=== PATIENT | female | born 1930 | race Caucasian/White ===

== ENCOUNTER 2017-09-04 05:34 | Inpatient (IN) | payer MEDICAID ==
[2017-09-04 05:46] VITALS: BMI 32.3
[2017-09-04] MEDS ORDERED: Sodium Chloride 0.9% 1,000 ML IV ONE ×2 (05:50→09:06)
[2017-09-04 06:15] LABS: SQUAMOUS EPITHIAL < 1 /hpf (0-5); URINE BILIRUBIN NEGATIVE (NEGATIVE); URINE BLOOD NEGATIVE (NEGATIVE); URINE CLARITY Clear (Clear); URINE COLOR Amber (YELLOW); URINE GLUCOSE (UA) NORMAL (Normal); URINE LEUKOCYTE ESTERASE NEG Leu/uL (Negative); URINE PROTEIN NEGATIVE (NEGATIVE)
[2017-09-04 06:25] LABS: BASO % 0.1 % (0.0-2.0); HEMOGLOBIN 12.4 g/dL (11.0-16.0); LYMPH # 0.2 K/uL (1.0-4.3); LYMPH % 5.7 % (20.0-40.0); MEAN CELL VOLUME 101.5 fL (81.0-99.0); MEAN CORPUSCULAR HEMOGLOBIN 34.6 pg (27.0-31.0); MEAN CORPUSCULAR HGB CONC 34.1 g/dL (33.0-37.0); MEAN PLATELET VOLUME 8.2 fL (7.2-11.7); MONO # 0.1 K/uL (0.0-0.8); MONO % 1.8 % (0.0-10.0); NEUT # 3.2 K/uL (1.8-7.0); NEUT % 92.4 % (50.0-75.0); NRBC % 0.1 % (0.0-2.0); PLATELET COUNT 209 K/uL (130-400); RBC 3.57 Mil/uL (3.80-5.20); WHITE BLOOD COUNT 3.5 K/uL (4.8-10.8)
--- NOTE | 2017-09-04 06:28 | C.PDOC ---
History Of Present Illness <Oanh Gaines - Last Filed: 09/04/17 06:58> <Latoya Pina - Last Filed: 09/04/17 09:19> 87 y/o female with a history of Alzheimer's, HTN, non-insulin depend DM, and anemia presents to the ED for SOB. Patient was brought in by group home EMS for worsening SOB and hypotension. She is not voicing any particular complaints due to dementia. BP was 60 palpitations with severe respiratory distress. Of note, no other history is available and patient is full code. PMD: Linda Fuentes (Oanh Gaines) History Per: Patient History/Exam Limitations: no limitations Onset/Duration Of Symptoms: Mins Current Symptoms Are (Timing): Still Present <Oanh Gaines - Last Filed: 09/04/17 06:58> <Latoya Pina - Last Filed: 09/04/17 09:19> Time Seen by Provider: 09/04/17 05:42 Chief Complaint (Nursing): Respiratory Distress Past Medical History - Medical History PMH: Alzheimer's Disease, Anemia, Diabetes, HTN Surgical History: No Surg Hx Denies: Pacemaker Family History: States: Unknown Family Hx - Social History Hx Tobacco Use: No Hx Alcohol Use: No Hx Substance Use: No - Immunization History Hx Tetanus Toxoid Vaccination: No Hx Influenza Vaccination: No Hx Pneumococcal Vaccination: No <Oanh Gaines - Last Filed: 09/04/17 06:58> <Latoya Pina - Last Filed: 09/04/17 09:19> Vital Signs: Last Vital Signs Temp 98.9 F 09/04/17 05:58 Pulse 122 H 09/04/17 06:35 Resp 43 H 09/04/17 06:35 BP 74/34 L 09/04/17 06:35 Pulse Ox 94 L 09/04/17 07:00 - [facility] Procedures ANGIOPLASTY OF OTHER NON-CORONARY VESSEL(S) (03/05/14) CONTRAST AORTOGRAM (03/05/14) CONTRAST ARTERIOGRAM NEC (03/05/14) ESOPHAGOGASTRODUODENOSCOPY [EGD] W/CLOSED BIOPSY (04/07/13) INSEJ [id number] PERIPHERAL NON-CORONARY VES STENT(S) (03/05/14) INSERTION OF ONE VASCULAR STENT (03/05/14) PROCEDURE ON SINGLE VESSEL (03/05/14) Review Of Systems Except As Marked, All Systems Reviewed And Found Negative. Cardiovascular: Positive for: Other (hypotension) Respiratory: Positive for: Shortness of Breath <Oanh Gaines - Last Filed: 09/04/17 06:58> Physical Exam - Physical Exam Appears: Well, In Acute Distress (severe due to respiratory distress), Other ( non-verbal) Skin: Dry, Pale, Other (poor skin turgor, 3 cm decrepit ulcer in sacral area erythema stage 2) Head: Atraumatic, Normacephalic Eye(s): bilateral: Normal Inspection, PERRL, EOMI Nose: Normal Oral Mucosa: Dry Throat: Normal Neck: Normal Cardiovascular: No Rhythm Regular (resting tachycardia of 120), Other ( peripheral pulses are thready and weak) Respiratory: No Normal Breath Sounds (respiratory distress, 56 breaths per minute), Rales (bilateral half way up), Other (respiration is labored with abnormal breathing) Gastrointestinal/Abdominal: Normal Exam Back: Normal Inspection, No CVA Tenderness, No Vertebral Tenderness Extremity: Normal ROM, No Pedal Edema, No Other (no clubbing or stenosis are appreciated) Neurological/Psych: No Oriented x3 (x1), Other (patient can move all extremities , cranial nerves grossly intact) <Oanh Gaines - Last Filed: 09/04/17 06:58> ED Course And Treatment - Laboratory Results Result Diagrams: 09/04/17 06:18 09/04/17 06:18 ECG: Interpreted By Me, Viewed By Me ECG Rhythm: Atrial Fibrillation, V-Tachycardia, R BBB (followed by QRS) Interpretation Of ECG: no EKG's for comparison Rate From EC O2 Sat by Pulse Oximetry: 94 (Bipap) Pulse Ox Interpretation: Normal <Oanh Gaines - Last Filed: 09/04/17 06:58> - Laboratory Results Result Diagrams: 09/04/17 06:18 09/04/17 06:18 <Latoya Pina - Last Filed: 09/04/17 09:19> Medical Decision Making <Oanh Gaines - Last Filed: 09/04/17 06:58> <Latoya Pina - Last Filed: 09/04/17 09:19> Medical Decision Making: Impression: Sepsis versus pneumonia versus CHF given patient has hypotension. Initiate sepsis protocol. Initial Plan: * Consult Dr. Mckeon * ABG * EKG * Cortisol Test * CBC * Chest X-Ray * IV Fluids * Blood Culture * Urine Culture * Bipap Scribe Attestation: Documented by Delmar Samson acting as a scribe Eder Chiang MD. MD Scribe Attestation: All medical record entries made by the Scribe were at my direction and personally dictated by me. I have reviewed the chart and agree that the record accurately reflects my personal performance of the history, physical exam, medical decision making, and the department course for this patient. I have also personally directed, reviewed, and agree with the discharge instructions and disposition. (Oanh Gaines) Addendum <Oanh Gaines - Last Filed: 09/04/17 06:58> <Latoya Pina - Last Filed: 09/04/17 09:19> Addendum: 09/04/17 08:24 Spoke with basket hand braider Dr. Gonzalez, aware of ICU patient - will come down and evaluate. 09/04/17 09:08 Patient signed out to me by Dr. Gaines, pending ICU admission/eval and central line. Patient is s/p endotracheal intubation by him. Multiple attempts made at central line insertion by me, right subclaviana nd right femoral - unsuccessul. Dr. Gonzalez came to ED and will move patient to ICU and attempt central line insertion there. As per family, patient has had abdominal pain fopr 2-3 weeks, has been getting PO [place] at [place]. CT scan abd/pelvius ordered to evaluate intraabomial infection/pathology. 09/04/17 09:19 Dr. Mckeon called and made aware of patient's current condition. (Latoya Pina )
[2017-09-04 06:38] LABS: ALB/GLOB RATIO 0.7 (1.0-2.1); ALBUMIN 2.1 g/dL (3.5-5.0); ALT/SGPT 17 U/L (9-52); AST/SGOT 13 U/L (14-36); BLOOD UREA NITROGEN 43 mg/dL (7-17); CALCIUM 7.1 mg/dl (8.6-10.4); GFR AFRICAN-AMERICAN > 60; GFR NON-AFRICAN AMERICAN 59
[2017-09-04 06:50] LABS: B-TYPE NATRIURETIC PEPTIDE 3450 pg/mL (0-900)
[2017-09-04 08:12] LABS: BANDS 21 % (0-2); EOSINOPHIL 1 % (0-4); LYMPHOCYTE 6 % (20-40); MONOCYTE 1 % (0-10); NEUTROPHIL 71 % (50-75); TOTAL CELLS COUNTED 100
[2017-09-04 08:14] LABS: PLATELET ESTIMATE NORMAL (NORMAL)
--- NOTE | 2017-09-04 08:26 | RAD ---
Chest x-ray single frontal view History: Sepsis. Comparison: 10/08/2013 Findings: Prominent consolidative opacifications seen within the left mid to lower lung zone as well as at the right lung base with moderate loculated left and small loculated right pleural effusions. Relative lucency at the left lung base. Enlarged ectatic aorta with calcification. Cardiomegaly. Right paratracheal prominence may represent prominent vasculature. Biapical pleural thickening with upper lobe granulomatous changes. Scattered nodularity in both lungs. Degenerative changes in the spine and shoulders. Impression: Prominent consolidative opacifications seen within the left mid to lower lung zone as well as at the right lung base with moderate loculated left and small loculated right pleural effusions. Relative lucency at the left lung base. Enlarged ectatic aorta with calcification. Cardiomegaly. Right paratracheal prominence may represent prominent vasculature. Biapical pleural thickening with upper lobe granulomatous changes. Scattered nodularity in both lungs. Degenerative changes in the spine and shoulders.
[2017-09-04] MEDS ORDERED: DOPamine 400mg/250ml D5W 400 MG/250 ML BAG IV PRN (09:05)
[2017-09-04] MEDS: Sodium Chloride 0.9% 1,000 ML IV ONE ×2 (09:10→10:55)
[2017-09-04] MEDS ORDERED: DOPamine 400mg/250ml D5W 400 MG/250 ML BAG IV ONE (09:11)
--- NOTE | 2017-09-04 09:31 | CP.PCM.CON ---
<SerafinbarbaraMichelle - Last Filed: 09/04/17 12:08> History of Present Illness - History of Present Illness History of Present Illness: ICU Consult Note for Dr. Salazar. This patient is an 87 year old female with a PMHx of Alzheimer's, HTN, non- insulin dependent DM, and anemia who presented with complaints of SOB. Patient was brought from the half-way by EMS due to worsening SOB and hypotension. ICU was consulted on this case due to worsening SOB, hypotension, and difficult central line access. Patient was already intubated on initial examination. Per Ed, patient received 2 boluses of normal saline. On arrival in ED, ICU Attending replaced ED physician to attempt emergent central line placement which was stopped due to poor patient positioning in the ED. Patient was then given Dopamine 400mg IV once then transferred to ICU. 1 more NS Bolus was ordered along with Levophed and Phenylephrine. Stat Aztreonam and Vancomycin was also ordered for empiric coverage for sepsis with unknown source. Emergent Triple Lumen Catheter was placed in the right IJ. Proper positioning of catheter was confirmed by Stat portable CXR. Per son, patient's medical history only consisted of a hernia. He stated that she was complaining of abdominal pain 2/2 to the hernia for several months and has been taking either Ibuprofen or Tylenol for several week every 4-6 hours. ROS was unattainable due to patient being on ventilation and vital sign instability. Review of Systems - Review of Systems Systems not reviewed;Unavailable: Unstable Vital Signs, Intubated Past Patient History - Past Social History Smoking Status: Unknown If Ever Smoked - CARDIAC Hx Hypertension: Yes Hx Pacemaker: No - NEUROLOGICAL Hx Alzheimer's Disease: Yes - ENDOCRINE/METABOLIC Hx Diabetes Mellitus Type 2: Yes - HEMATOLOGICAL/ONCOLOGICAL Hx Anemia: Yes - MUSCULOSKELETAL/RHEUMATOLOGICAL Hx Musculoskeletal Disorders: Yes - GASTROINTESTINAL Hx Gastroesophageal Reflux: Yes - PSYCHIATRIC Hx Substance Use: No - SURGICAL HISTORY Hx Surgeries: No - ANESTHESIA Hx Anesthesia Reactions: No Hx Malignant Hyperthermia: No Meds Allergies/Adverse Reactions: Allergies Allergy/AdvReac Type Severity Reaction Status Date / Time Penicillins Allergy Intermediate RASH Verified 09/04/17 05:46 - Medications Medications: Current Medications Norepinephrine Bitartrate 8 mg (/ Sodium Chloride) 258 mls @ 7.74 mls/hr IV .Q24H PRN; Protocol; 4 MCG/MIN PRN Reason: TITRATE PER MD ORDER Physical Exam - Constitutional Appears: Toxic - Head Exam Head Exam: ATRAUMATIC, NORMOCEPHALIC - Eye Exam Eye Exam: Normal appearance - ENT Exam ENT Exam: Mucous Membranes Moist - Respiratory Exam Respiratory Exam: Decreased Breath Sounds, Clear to Auscultation Bilateral Additional comments: Intubated - Cardiovascular Exam Cardiovascular Exam: Tachycardia, REGULAR RHYTHM, +S1, +S2. absent: Bradycardia - GI/Abdominal Exam GI & Abdominal Exam: Hypoactive Bowel Sounds, Soft. absent: Organomegaly - Extremities Exam Extremities exam: Negative for: pedal edema - Neurological Exam Neurological exam: Altered - Skin Skin Exam: Dry, Intact, Normal Color, Warm Results - Vital Signs Recent Vital Signs: Last Vital Signs Temp 98.9 F 09/04/17 05:58 Pulse 122 H 09/04/17 06:35 Resp 43 H 09/04/17 06:35 BP 74/34 L 09/04/17 06:35 Pulse Ox 94 L 09/04/17 07:00 - Labs Result Diagrams: 09/04/17 06:18 09/04/17 06:18 Labs: Laboratory Results - last 24 hr 09/04/17 09/04/17 09/04/17 05:54 06:06 06:06 WBC RBC Hgb Hct MCV MCH MCHC RDW Plt Count MPV Neut % (Auto) Lymph % (Auto) [place] % (Auto) Eos % (Auto) Baso % (Auto) Neut # (Auto) Lymph # (Auto) [place] # (Auto) Eos # (Auto) Baso # (Auto) Neutrophils % (Manual) Band Neutrophils % Lymphocytes % (Manual) Monocytes % (Manual) Eosinophils % (Manual) Platelet Estimate Sodium Potassium Chloride Carbon Dioxide Anion Gap BUN Creatinine Est GFR ( Amer) Est GFR (Non-Af Amer) POC Glucose (mg/dL) 84 84 Random Glucose Lactic Acid Calcium Phosphorus Magnesium Total Bilirubin AST ALT Alkaline Phosphatase Troponin I C-React Prot High Sens NT-Pro-B Natriuret Pep Total Protein Albumin Globulin Albumin/Globulin Ratio Plasma Cortisol PM Urine Color [place]aly[place] Urine Clarity Clear Urine pH 5.0 Ur Specific [place] 1.013 Urine Protein Negative Urine Glucose (UA) Normal Urine Ketones Negative Urine Blood Negative Urine Nitrate Negative Urine Bilirubin Negative Urine Urobilinogen 2.0 H Ur Leukocyte Esterase Neg Urine WBC (Auto) 5 Urine RBC (Auto) 4 H Ur Squamous Epith Cells < 1 Hyaline Casts 11-20 H 09/04/17 09/04/17 09/04/17 06:18 06:18 06:18 WBC 3.5 L RBC 3.57 L Hgb 12.4 Hct 36.3 MCV 101.5 H D MCH 34.6 H MCHC 34.1 RDW 14.0 Plt Count 209 MPV 8.2 Neut % (Auto) 92.4 H Lymph % (Auto) 5.7 L [place] % (Auto) 1.8 Eos % (Auto) 0.0 Baso % (Auto) 0.1 Neut # (Auto) 3.2 Lymph # (Auto) 0.2 L [place] # (Auto) 0.1 Eos # (Auto) 0.0 Baso # (Auto) 0.0 Neutrophils % (Manual) 71 Band Neutrophils % 21 H* Lymphocytes % (Manual) 6 L Monocytes % (Manual) 1 Eosinophils % (Manual) 1 Platelet Estimate Normal Sodium 140 Potassium 4.5 Chloride 107 Carbon Dioxide 24 Anion Gap 14 BUN 43 H Creatinine 0.9 Est GFR ( Amer) > 60 Est GFR (Non-Af Amer) 59 POC Glucose (mg/dL) Random Glucose 83 Lactic Acid Calcium 7.1 L Phosphorus 3.8 Magnesium 2.5 H Total Bilirubin 1.3 AST 13 L ALT 17 Alkaline Phosphatase 94 Troponin I 0.0330 C-React Prot High Sens > 15.00 H NT-Pro-B Natriuret Pep 3450 H Total Protein 5.1 L Albumin 2.1 L D Globulin 3.0 Albumin/Globulin Ratio 0.7 L Plasma Cortisol PM Urine Color Urine Clarity Urine pH Ur Specific [place] Urine Protein Urine Glucose (UA) Urine Ketones Urine Blood Urine Nitrate Urine Bilirubin Urine Urobilinogen Ur Leukocyte Esterase Urine WBC (Auto) Urine RBC (Auto) Ur Squamous Epith Cells Hyaline Casts 09/04/17 09/04/17 06:18 06:21 WBC RBC Hgb Hct MCV MCH MCHC RDW Plt Count MPV Neut % (Auto) Lymph % (Auto) [place] % (Auto) Eos % (Auto) Baso % (Auto) Neut # (Auto) Lymph # (Auto) [place] # (Auto) Eos # (Auto) Baso # (Auto) Neutrophils % (Manual) Band Neutrophils % Lymphocytes % (Manual) Monocytes % (Manual) Eosinophils % (Manual) Platelet Estimate Sodium Potassium Chloride Carbon Dioxide Anion Gap BUN Creatinine Est GFR ( Amer) Est GFR (Non-Af Amer) POC Glucose (mg/dL) Random Glucose Lactic Acid 2.2 H Calcium Phosphorus Magnesium Total Bilirubin AST ALT Alkaline Phosphatase Troponin I C-React Prot High Sens NT-Pro-B Natriuret Pep Total Protein Albumin Globulin Albumin/Globulin Ratio Plasma Cortisol PM 53.7 H Urine Color Urine Clarity Urine pH Ur Specific [place] Urine Protein Urine Glucose (UA) Urine Ketones Urine Blood Urine Nitrate Urine Bilirubin Urine Urobilinogen Ur Leukocyte Esterase Urine WBC (Auto) Urine RBC (Auto) Ur Squamous Epith Cells Hyaline Casts Assessment & Plan - Assessment and Plan (Free Text) Assessment: 87 year old female with a PMHx of Alzheimer's, HTN, non-insulin dependent DM, and anemia. ICU consulted due to worsening SOB and hypotension. Plan: Neuro: GSC 3T Cardio ED: 1L NS Bolus x 2, Dopamine Troponin Negative BNP elevated at 3450 EKG (Adm): A-fib with RVR Start Levophed drip Start Phenylephrine drip 1L NS Bolus x 1 Cardiology Consulted per Primary Pulm CXR (09-04-17) @ 6:44: Prominent consolidative opacifications seen within the left mid to lower lung zone as well as at the right lung base with moderate loculated left and small loculated right pleural effusions. Relative lucency at the left lung base. Enlarged ectatic aorta with calcification. Cardiomegaly. Right paratracheal prominence may represent prominent vasculature. Biapical pleural thickening with upper lobe granulomatous changes. Scattered nodularity in both lungs. Degenerative changes in the spine and shoulders ABG (09-04-17) @ 10:25: pH - 7.13, pC02 -35, P02-36, HCO3-10.4 Currently on Ventilatory support. GI A: Abdominal Pain CT Abd/Pelvis with PO Contrast ordered. GI Consulted per Primary : UA: elevated 2.0H, 4 RBC, and 11-20 Hyaline Cast. Negative for Nitrates and Leuk Esterase. Nephro/electrolytes A: Hypocalcemia, Hypermagnesemia Nephrology Consulted by Primary ID A: Sepsis with unknown source (likely pneumonia) 2.2 Lactic Acid Start Vancomyicn 1g Q12 and Aztreonam 1g Q8H Blood Culture, Urine Culture, CXR ID Consult (Dr. Sanchez) Prophylaxis Start Heparin SC q8H in AM Start Protonix 40 IV in AM Patient seen and discussed with ICU Attending Michelle Barry, PGY-1 <Shayan Salazar S - Last Filed: 09/04/17 18:42> Results - Vital Signs Recent Vital Signs: Last Vital Signs Temp 97.7 F 09/04/17 09:48 Pulse 51 L 09/04/17 11:30 Resp 19 09/04/17 11:30 BP 153/47 H 09/04/17 11:27 Pulse Ox 77 L 09/04/17 11:00 - Labs Result Diagrams: 09/04/17 06:18 09/04/17 06:18 Labs: Laboratory Results - last 24 hr 09/04/17 09/04/17 09/04/17 05:54 06:06 06:06 WBC RBC Hgb Hct MCV MCH MCHC RDW Plt Count MPV Neut % (Auto) Lymph % (Auto) [place] % (Auto) Eos % (Auto) Baso % (Auto) Neut # (Auto) Lymph # (Auto) [place] # (Auto) Eos # (Auto) Baso # (Auto) Neutrophils % (Manual) Band Neutrophils % Lymphocytes % (Manual) Monocytes % (Manual) Eosinophils % (Manual) Platelet Estimate Puncture Site pCO2 pO2 HCO3 ABG pH ABG Total CO2 ABG O2 Saturation ABG Base Excess [place] Test ABG Potassium A-a O2 Difference Respiratory Index Glucose Lactate Vent Mode Mechanical Rate FiO2 Tidal Volume PEEP Blood Gas Comments Crit Value Called To Crit Value Called By Crit Value Read Back Blood Gas Notified Time Sodium Potassium Chloride Carbon Dioxide Anion Gap BUN Creatinine Est GFR ( Amer) Est GFR (Non-Af Amer) POC Glucose (mg/dL) 84 84 Random Glucose Lactic Acid Calcium Phosphorus Magnesium Total Bilirubin AST ALT Alkaline Phosphatase Troponin I C-React Prot High Sens NT-Pro-B Natriuret Pep Total Protein Albumin Globulin Albumin/Globulin Ratio Plasma Cortisol PM Arterial Blood Potassium Urine Color Kalyani Urine Clarity Clear Urine pH 5.0 Ur Specific [place] 1.013 Urine Protein Negative Urine Glucose (UA) Normal Urine Ketones Negative Urine Blood Negative Urine Nitrate Negative Urine Bilirubin Negative Urine Urobilinogen 2.0 H Ur Leukocyte Esterase Neg Urine WBC (Auto) 5 Urine RBC (Auto) 4 H Ur Squamous Epith Cells < 1 Hyaline Casts 11-20 H 09/04/17 09/04/17 09/04/17 06:18 06:18 06:18 WBC 3.5 L RBC 3.57 L Hgb 12.4 Hct 36.3 MCV 101.5 H D MCH 34.6 H MCHC 34.1 RDW 14.0 Plt Count 209 MPV 8.2 Neut % (Auto) 92.4 H Lymph % (Auto) 5.7 L [place] % (Auto) 1.8 Eos % (Auto) 0.0 Baso % (Auto) 0.1 Neut # (Auto) 3.2 Lymph # (Auto) 0.2 L [place] # (Auto) 0.1 Eos # (Auto) 0.0 Baso # (Auto) 0.0 Neutrophils % (Manual) 71 Band Neutrophils % 21 H* Lymphocytes % (Manual) 6 L Monocytes % (Manual) 1 Eosinophils % (Manual) 1 Platelet Estimate Normal Puncture Site pCO2 pO2 HCO3 ABG pH ABG Total CO2 ABG O2 Saturation ABG Base Excess [place] Test ABG Potassium A-a O2 Difference Respiratory Index Glucose Lactate Vent Mode Mechanical Rate FiO2 Tidal Volume PEEP Blood Gas Comments Crit Value Called To Crit Value Called By Crit Value Read Back Blood Gas Notified Time Sodium 140 Potassium 4.5 Chloride 107 Carbon Dioxide 24 Anion Gap 14 BUN 43 H Creatinine 0.9 Est GFR ( Amer) > 60 Est GFR (Non-Af Amer) 59 POC Glucose (mg/dL) Random Glucose 83 Lactic Acid Calcium 7.1 L Phosphorus 3.8 Magnesium 2.5 H Total Bilirubin 1.3 AST 13 L ALT 17 Alkaline Phosphatase 94 Troponin I 0.0330 C-React Prot High Sens > 15.00 H NT-Pro-B Natriuret Pep 3450 H Total Protein 5.1 L Albumin 2.1 L D Globulin 3.0 Albumin/Globulin Ratio 0.7 L Plasma Cortisol PM Arterial Blood Potassium Urine Color Urine Clarity Urine pH Ur Specific [place] Urine Protein Urine Glucose (UA) Urine Ketones Urine Blood Urine Nitrate Urine Bilirubin Urine Urobilinogen Ur Leukocyte Esterase Urine WBC (Auto) Urine RBC (Auto) Ur Squamous Epith Cells Hyaline Casts 09/04/17 09/04/17 09/04/17 06:18 06:21 10:24 WBC RBC Hgb Hct MCV MCH MCHC RDW Plt Count MPV Neut % (Auto) Lymph % (Auto) [place] % (Auto) Eos % (Auto) Baso % (Auto) Neut # (Auto) Lymph # (Auto) [place] # (Auto) Eos # (Auto) Baso # (Auto) Neutrophils % (Manual) Band Neutrophils % Lymphocytes % (Manual) Monocytes % (Manual) Eosinophils % (Manual) Platelet Estimate Puncture Site Rf pCO2 34 L pO2 36 L* HCO3 10.4 L ABG pH 7.13 L* ABG Total CO2 12.3 L ABG O2 Saturation 54.5 L ABG Base Excess -16.9 L [place] Test Na ABG Potassium 2.8 L A-a O2 Difference 635.0 Respiratory Index 17.6 Glucose 63 L Lactate 4.0 H* Vent Mode Prvc Mechanical Rate 12 FiO2 100.0 Tidal Volume 450 PEEP 5 Blood Gas Comments Mixed venous Crit Value Called To Dr salazar Crit Value Called By Bruna roberts bag repairer Crit Value Read Back Y Blood Gas Notified Time 1030 Sodium 146.0 Potassium Chloride 121.0 H Carbon Dioxide Anion Gap BUN Creatinine Est GFR ( Amer) Est GFR (Non-Af Amer) POC Glucose (mg/dL) Random Glucose Lactic Acid 2.2 H Calcium Phosphorus Magnesium Total Bilirubin AST ALT Alkaline Phosphatase Troponin I C-React Prot High Sens NT-Pro-B Natriuret Pep Total Protein Albumin Globulin Albumin/Globulin Ratio Plasma Cortisol PM 53.7 H Arterial Blood Potassium 2.8 L Urine Color Urine Clarity Urine pH Ur Specific [place] Urine Protein Urine Glucose (UA) Urine Ketones Urine Blood Urine Nitrate Urine Bilirubin Urine Urobilinogen Ur Leukocyte Esterase Urine WBC (Auto) Urine RBC (Auto) Ur Squamous Epith Cells Hyaline Casts 09/04/17 11:51 WBC RBC Hgb Hct MCV MCH MCHC RDW Plt Count MPV Neut % (Auto) Lymph % (Auto) [place] % (Auto) Eos % (Auto) Baso % (Auto) Neut # (Auto) Lymph # (Auto) [place] # (Auto) Eos # (Auto) Baso # (Auto) Neutrophils % (Manual) Band Neutrophils % Lymphocytes % (Manual) Monocytes % (Manual) Eosinophils % (Manual) Platelet Estimate Puncture Site pCO2 pO2 HCO3 ABG pH ABG Total CO2 ABG O2 Saturation ABG Base Excess [place] Test ABG Potassium A-a O2 Difference Respiratory Index Glucose Lactate Vent Mode Mechanical Rate FiO2 Tidal Volume PEEP Blood Gas Comments Crit Value Called To Crit Value Called By Crit Value Read Back Blood Gas Notified Time Sodium Potassium Chloride Carbon Dioxide Anion Gap BUN Creatinine Est GFR ( Amer) Est GFR (Non-Af Amer) POC Glucose (mg/dL) 74 Random Glucose Lactic Acid Calcium Phosphorus Magnesium Total Bilirubin AST ALT Alkaline Phosphatase Troponin I C-React Prot High Sens NT-Pro-B Natriuret Pep Total Protein Albumin Globulin Albumin/Globulin Ratio Plasma Cortisol PM Arterial Blood Potassium Urine Color Urine Clarity Urine pH Ur Specific [place] Urine Protein Urine Glucose (UA) Urine Ketones Urine Blood Urine Nitrate Urine Bilirubin Urine Urobilinogen Ur Leukocyte Esterase Urine WBC (Auto) Urine RBC (Auto) Ur Squamous Epith Cells Hyaline Casts Attending/Attestation - Attestation I have personally seen and examined this patient.: Yes I have fully participated in the care of the patient.: Yes I have reviewed all pertinent clinical information: Yes Notes (Text): 09/04/17 patient seen and examined 87-year-old female admitted to ICU for hypotension, respiratory failure Triple-lumen catheter inserted in right internal jugular vein IV antibiotics started Fluid resuscitation Phenylephrine drip Follow-up culture and sensitivity CT of the abdomen and pelvis ordered case discussed with family at length
[2017-09-04] MEDS ORDERED: Phenylephrine 30 MG in Sodium Chloride 0.9% 247 ML IV PRN (09:49)
[2017-09-04] MEDS ORDERED: Piperacillin/Tazobact 3.375 GM in Sodium Chloride 100 ML IVPB STA (09:51)
[2017-09-04] MEDS ORDERED: Vancomycin 1 gm/NS 200 ml 1 GM/200 ML BAG IVPB STA (09:54)
[2017-09-04] MEDS ORDERED: Aztreonam 1 GM in Sodium Chloride 0.9% 100 ML IVPB STA (09:55)
[2017-09-04 10:31] LABS: ARTERIAL BLOOD GAS HCO3 10.4 mmol/L (21-28); ARTERIAL BLOOD GAS O2 SAT 54.5 % (95-98); ARTERIAL BLOOD GAS PCO2 34 mm/Hg (35-45); ARTERIAL BLOOD GAS PH 7.13 (7.35-7.45); ARTERIAL BLOOD GAS PO2 36 mm/Hg (80-100); ARTERIAL BLOOD GAS TCO2 12.3 mmol/L (22-28)
--- NOTE | 2017-09-04 10:45 | CP.PCM.CON ---
History of Present Illness - History of Present Illness History of Present Illness: Initial PGY4 GI Consult Note Yana Valdez is a 87F w/ hx of Alzheimer's, HTN, non-insulin depend DM, and anemia presents to the ED for SOB. At the time of evaluation, the patient was intubated and could not answer any questions. All information obtained was from the staff and medical record. Pt apparently was sent from the group home. Gi was consulted for abdominal pain. as per staff, pt did not have any Bm since admission. She triggered a code sepsis and was started on vancomycin and azactam. PMHx: Alzheimer's, HTN, non-insulin depend DM, and anemia PSHx: Unknown Family Hx: unknown Social Hx: Unknown Endo hx: unknown ROS: could not obtain Past Patient History - Past Social History Smoking Status: Unknown If Ever Smoked - CARDIAC Hx Hypertension: Yes Hx Pacemaker: No - NEUROLOGICAL Hx Alzheimer's Disease: Yes - ENDOCRINE/METABOLIC Hx Diabetes Mellitus Type 2: Yes - HEMATOLOGICAL/ONCOLOGICAL Hx Anemia: Yes - MUSCULOSKELETAL/RHEUMATOLOGICAL Hx Musculoskeletal Disorders: Yes - GASTROINTESTINAL Hx Gastroesophageal Reflux: Yes - PSYCHIATRIC Hx Substance Use: No - SURGICAL HISTORY Hx Surgeries: No - ANESTHESIA Hx Anesthesia Reactions: No Hx Malignant Hyperthermia: No Meds Allergies/Adverse Reactions: Allergies Allergy/AdvReac Type Severity Reaction Status Date / Time Penicillins Allergy Intermediate RASH Verified 09/04/17 05:46 - Medications Medications: Current Medications Norepinephrine Bitartrate 8 mg (/ Sodium Chloride) 258 mls @ 7.74 mls/hr IV .Q24H PRN; Protocol; 4 MCG/MIN PRN Reason: TITRATE PER MD ORDER Phenylephrine HCl 30 mg/ (Sodium Chloride) 250 mls @ 10 mls/hr IV .Q24H PRN; Protocol; 20 MCG/MIN PRN Reason: TITRATE PER MD ORDER Vancomycin/Sodium Chloride (Vancomycin 1 Gm/Ns 200 Ml) 1 gm in 200 mls @ 133.333 mls/hr IVPB STAT STA PRN Reason: Protocol Stop: 09/04/17 11:23 Vancomycin/Sodium Chloride (Vancomycin 1 Gm/Ns 200 Ml) 1 gm in 200 mls @ 133.333 mls/hr IVPB Q12H JOSÉ MIGUEL PRN Reason: Protocol Stop: 09/09/17 22:01 Aztreonam 1 gm/ Sodium (Chloride) 100 mls @ 200 mls/hr IVPB Q8H JOSÉ MIGUEL PRN Reason: Protocol Sodium Chloride (Sodium Chloride 0.9%) 1,000 mls @ 1,000 mls/hr IV .Q1H ONE Stop: 09/04/17 11:03 Dopamine HCl/Dextrose (Dopamine 400mg/250ml D5w) 400 mg in 250 mls @ 15.309 mls /hr IV .[id number] PRN; Protocol; 5 MCG/KG/MIN PRN Reason: TITRATE PER MD ORDER Last Admin: 09/04/17 09:07 Dose: 5 mcg/kg/min, 15.309 mls/hr Results - Vital Signs Recent Vital Signs: Last Vital Signs Temp 98.9 F 09/04/17 05:58 Pulse 99 H 09/04/17 09:15 Resp 22 09/04/17 09:15 BP 97/79 L 09/04/17 09:15 Pulse Ox 96 09/04/17 09:15 - Labs Result Diagrams: 09/04/17 06:18 09/04/17 06:18 Labs: Laboratory Results - last 24 hr 09/04/17 09/04/17 09/04/17 05:54 06:06 06:06 WBC RBC Hgb Hct MCV MCH MCHC RDW Plt Count MPV Neut % (Auto) Lymph % (Auto) [place] % (Auto) Eos % (Auto) Baso % (Auto) Neut # (Auto) Lymph # (Auto) [place] # (Auto) Eos # (Auto) Baso # (Auto) Neutrophils % (Manual) Band Neutrophils % Lymphocytes % (Manual) Monocytes % (Manual) Eosinophils % (Manual) Platelet Estimate Puncture Site pCO2 pO2 HCO3 ABG pH ABG Total CO2 ABG O2 Saturation ABG Base Excess [place] Test ABG Potassium A-a O2 Difference Respiratory Index Glucose Lactate Vent Mode Mechanical Rate FiO2 Tidal Volume PEEP Blood Gas Comments Crit Value Called To Crit Value Called By Crit Value Read Back Blood Gas Notified Time Sodium Potassium Chloride Carbon Dioxide Anion Gap BUN Creatinine Est GFR ( Amer) Est GFR (Non-Af Amer) POC Glucose (mg/dL) 84 84 Random Glucose Lactic Acid Calcium Phosphorus Magnesium Total Bilirubin AST ALT Alkaline Phosphatase Troponin I C-React Prot High Sens NT-Pro-B Natriuret Pep Total Protein Albumin Globulin Albumin/Globulin Ratio Plasma Cortisol PM Arterial Blood Potassium Urine Color [place]aly[place] Urine Clarity Clear Urine pH 5.0 Ur Specific [place] 1.013 Urine Protein Negative Urine Glucose (UA) Normal Urine Ketones Negative Urine Blood Negative Urine Nitrate Negative Urine Bilirubin Negative Urine Urobilinogen 2.0 H Ur Leukocyte Esterase Neg Urine WBC (Auto) 5 Urine RBC (Auto) 4 H Ur Squamous Epith Cells < 1 Hyaline Casts 11-20 H 09/04/17 09/04/17 09/04/17 06:18 06:18 06:18 WBC 3.5 L RBC 3.57 L Hgb 12.4 Hct 36.3 MCV 101.5 H D MCH 34.6 H MCHC 34.1 RDW 14.0 Plt Count 209 MPV 8.2 Neut % (Auto) 92.4 H Lymph % (Auto) 5.7 L [place] % (Auto) 1.8 Eos % (Auto) 0.0 Baso % (Auto) 0.1 Neut # (Auto) 3.2 Lymph # (Auto) 0.2 L [place] # (Auto) 0.1 Eos # (Auto) 0.0 Baso # (Auto) 0.0 Neutrophils % (Manual) 71 Band Neutrophils % 21 H* Lymphocytes % (Manual) 6 L Monocytes % (Manual) 1 Eosinophils % (Manual) 1 Platelet Estimate Normal Puncture Site pCO2 pO2 HCO3 ABG pH ABG Total CO2 ABG O2 Saturation ABG Base Excess [place] Test ABG Potassium A-a O2 Difference Respiratory Index Glucose Lactate Vent Mode Mechanical Rate FiO2 Tidal Volume PEEP Blood Gas Comments Crit Value Called To Crit Value Called By Crit Value Read Back Blood Gas Notified Time Sodium 140 Potassium 4.5 Chloride 107 Carbon Dioxide 24 Anion Gap 14 BUN 43 H Creatinine 0.9 Est GFR ( Amer) > 60 Est GFR (Non-Af Amer) 59 POC Glucose (mg/dL) Random Glucose 83 Lactic Acid Calcium 7.1 L Phosphorus 3.8 Magnesium 2.5 H Total Bilirubin 1.3 AST 13 L ALT 17 Alkaline Phosphatase 94 Troponin I 0.0330 C-React Prot High Sens > 15.00 H NT-Pro-B Natriuret Pep 3450 H Total Protein 5.1 L Albumin 2.1 L D Globulin 3.0 Albumin/Globulin Ratio 0.7 L Plasma Cortisol PM Arterial Blood Potassium Urine Color Urine Clarity Urine pH Ur Specific [place] Urine Protein Urine Glucose (UA) Urine Ketones Urine Blood Urine Nitrate Urine Bilirubin Urine Urobilinogen Ur Leukocyte Esterase Urine WBC (Auto) Urine RBC (Auto) Ur Squamous Epith Cells Hyaline Casts 09/04/17 09/04/17 09/04/17 06:18 06:21 10:24 WBC RBC Hgb Hct MCV MCH MCHC RDW Plt Count MPV Neut % (Auto) Lymph % (Auto) [place] % (Auto) Eos % (Auto) Baso % (Auto) Neut # (Auto) Lymph # (Auto) [place] # (Auto) Eos # (Auto) Baso # (Auto) Neutrophils % (Manual) Band Neutrophils % Lymphocytes % (Manual) Monocytes % (Manual) Eosinophils % (Manual) Platelet Estimate Puncture Site Rf pCO2 34 L pO2 36 L* HCO3 10.4 L ABG pH 7.13 L* ABG Total CO2 12.3 L ABG O2 Saturation 54.5 L ABG Base Excess -16.9 L [place] Test Na ABG Potassium 2.8 L A-a O2 Difference 635.0 Respiratory Index 17.6 Glucose 63 L Lactate 4.0 H* Vent Mode Prvc Mechanical Rate 12 FiO2 100.0 Tidal Volume 450 PEEP 5 Blood Gas Comments Mixed venous Crit Value Called To Dr salazar Crit Value Called By Bruna roberts inflatable buildings laminator Crit Value Read Back Y Blood Gas Notified Time 1030 Sodium 146.0 Potassium Chloride 121.0 H Carbon Dioxide Anion Gap BUN Creatinine Est GFR ( Amer) Est GFR (Non-Af Amer) POC Glucose (mg/dL) Random Glucose Lactic Acid 2.2 H Calcium Phosphorus Magnesium Total Bilirubin AST ALT Alkaline Phosphatase Troponin I C-React Prot High Sens NT-Pro-B Natriuret Pep Total Protein Albumin Globulin Albumin/Globulin Ratio Plasma Cortisol PM 53.7 H Arterial Blood Potassium 2.8 L Urine Color Urine Clarity Urine pH Ur Specific [place] Urine Protein Urine Glucose (UA) Urine Ketones Urine Blood Urine Nitrate Urine Bilirubin Urine Urobilinogen Ur Leukocyte Esterase Urine WBC (Auto) Urine RBC (Auto) Ur Squamous Epith Cells Hyaline Casts
--- NOTE | 2017-09-04 10:53 | RAD ---
HISTORY: Line Placement COMPARISON: 09/04/2017 FINDINGS: LUNGS: No active pulmonary disease. PLEURA: Possible small left pleural effusion. No right pleural effusion. No pneumothorax. CARDIOVASCULAR: Normal heart size. ET tube unchanged. New right IJ central venous catheter. OSSEOUS STRUCTURES: No significant abnormalities. VISUALIZED UPPER ABDOMEN: Normal. OTHER FINDINGS: None. IMPRESSION: New right IJ central venous catheter. No pneumothorax. Possible small left pleural effusion. ET tube unchanged.
--- NOTE | 2017-09-04 10:55 | RAD ---
PROCEDURE: CHEST RADIOGRAPH, 1 VIEW HISTORY: postintubation COMPARISON: 09/04/2017 FINDINGS: LUNGS: Clear. PLEURA: No pneumothorax or pleural fluid seen. CARDIOVASCULAR: ETT appropriately positioned approximately 3 centimeters above the tracheal karen. Normal heart size. No congestive change. OSSEOUS STRUCTURES: No significant abnormalities. VISUALIZED UPPER ABDOMEN: Normal. OTHER FINDINGS: None. IMPRESSION: ET tube appropriately positioned.
--- NOTE | 2017-09-04 11:27 | CP.PCM.CON ---
History of Present Illness - History of Present Illness History of Present Illness: 87 y/o female with a history of Alzheimer's, HTN, non-insulin depend DM, and anemia presents to the ED for SOB. Patient was brought in by [facility] for worsening SOB and hypotension. She is not voicing any particular complaints due to dementia. BP was 60 palpitations with severe respiratory distress. Of note, no other history is available and patient is full code. STARTED EMPIRIC IV RX ID CONSULTED FOR THIS Past Medical History - Medical History PMH: Alzheimer's Disease, Anemia, Diabetes, HTN Surgical History: No Surg Hx Denies: Pacemaker Family History: States: Unknown Family Hx Past Patient History - Past Social History Smoking Status: Unknown If Ever Smoked - CARDIAC Hx Hypertension: Yes Hx Pacemaker: No - NEUROLOGICAL Hx Alzheimer's Disease: Yes - ENDOCRINE/METABOLIC Hx Diabetes Mellitus Type 2: Yes - HEMATOLOGICAL/ONCOLOGICAL Hx Anemia: Yes - MUSCULOSKELETAL/RHEUMATOLOGICAL Hx Musculoskeletal Disorders: Yes - GASTROINTESTINAL Hx Gastroesophageal Reflux: Yes - PSYCHIATRIC Hx Substance Use: No - SURGICAL HISTORY Hx Surgeries: No - ANESTHESIA Hx Anesthesia Reactions: No Hx Malignant Hyperthermia: No Meds Allergies/Adverse Reactions: Allergies Allergy/AdvReac Type Severity Reaction Status Date / Time Penicillins Allergy Intermediate RASH Verified 09/04/17 05:46 - Medications Medications: Current Medications Norepinephrine Bitartrate 8 mg (/ Sodium Chloride) 258 mls @ 7.74 mls/hr IV .Q24H PRN; Protocol; 4 MCG/MIN PRN Reason: TITRATE PER MD ORDER Phenylephrine HCl 30 mg/ (Sodium Chloride) 250 mls @ 10 mls/hr IV .Q24H PRN; Protocol; 20 MCG/MIN PRN Reason: TITRATE PER MD ORDER Last Admin: 09/04/17 10:51 Dose: 20 mcg/min, 10 mls/hr Vancomycin/Sodium Chloride (Vancomycin 1 Gm/Ns 200 Ml) 1 gm in 200 mls @ 133.333 mls/hr IVPB Q12H JOSÉ MIGUEL PRN Reason: Protocol Stop: 09/09/17 22:01 Aztreonam 1 gm/ Sodium (Chloride) 100 mls @ 200 mls/hr IVPB Q8H JOSÉ MIGUEL PRN Reason: Protocol Dopamine HCl/Dextrose (Dopamine 400mg/250ml D5w) 400 mg in 250 mls @ 15.309 mls /hr IV .[id number] PRN; Protocol; 5 MCG/KG/MIN PRN Reason: TITRATE PER MD ORDER Last Admin: 09/04/17 09:07 Dose: 5 mcg/kg/min, 15.309 mls/hr Results - Vital Signs Recent Vital Signs: Last Vital Signs Temp 98.9 F 09/04/17 05:58 Pulse 99 H 09/04/17 09:15 Resp 22 09/04/17 09:15 BP 72/40 L 09/04/17 10:51 Pulse Ox 96 09/04/17 09:15 - Labs Result Diagrams: 09/04/17 06:18 09/04/17 06:18 Labs: Laboratory Results - last 24 hr 09/04/17 09/04/17 09/04/17 05:54 06:06 06:06 WBC RBC Hgb Hct MCV MCH MCHC RDW Plt Count MPV Neut % (Auto) Lymph % (Auto) [place] % (Auto) Eos % (Auto) Baso % (Auto) Neut # (Auto) Lymph # (Auto) [place] # (Auto) Eos # (Auto) Baso # (Auto) Neutrophils % (Manual) Band Neutrophils % Lymphocytes % (Manual) Monocytes % (Manual) Eosinophils % (Manual) Platelet Estimate Puncture Site pCO2 pO2 HCO3 ABG pH ABG Total CO2 ABG O2 Saturation ABG Base Excess [place] Test ABG Potassium A-a O2 Difference Respiratory Index Glucose Lactate Vent Mode Mechanical Rate FiO2 Tidal Volume PEEP Blood Gas Comments Crit Value Called To Crit Value Called By Crit Value Read Back Blood Gas Notified Time Sodium Potassium Chloride Carbon Dioxide Anion Gap BUN Creatinine Est GFR ( Amer) Est GFR (Non-Af Amer) POC Glucose (mg/dL) 84 84 Random Glucose Lactic Acid Calcium Phosphorus Magnesium Total Bilirubin AST ALT Alkaline Phosphatase Troponin I C-React Prot High Sens NT-Pro-B Natriuret Pep Total Protein Albumin Globulin Albumin/Globulin Ratio Plasma Cortisol PM Arterial Blood Potassium Urine Color [place] Urine Clarity Clear Urine pH 5.0 Ur Specific [place] 1.013 Urine Protein Negative Urine Glucose (UA) Normal Urine Ketones Negative Urine Blood Negative Urine Nitrate Negative Urine Bilirubin Negative Urine Urobilinogen 2.0 H Ur Leukocyte Esterase Neg Urine WBC (Auto) 5 Urine RBC (Auto) 4 H Ur Squamous Epith Cells < 1 Hyaline Casts 11-20 H 09/04/17 09/04/17 09/04/17 06:18 06:18 06:18 WBC 3.5 L RBC 3.57 L Hgb 12.4 Hct 36.3 MCV 101.5 H D MCH 34.6 H MCHC 34.1 RDW 14.0 Plt Count 209 MPV 8.2 Neut % (Auto) 92.4 H Lymph % (Auto) 5.7 L [place] % (Auto) 1.8 Eos % (Auto) 0.0 Baso % (Auto) 0.1 Neut # (Auto) 3.2 Lymph # (Auto) 0.2 L [place] # (Auto) 0.1 Eos # (Auto) 0.0 Baso # (Auto) 0.0 Neutrophils % (Manual) 71 Band Neutrophils % 21 H* Lymphocytes % (Manual) 6 L Monocytes % (Manual) 1 Eosinophils % (Manual) 1 Platelet Estimate Normal Puncture Site pCO2 pO2 HCO3 ABG pH ABG Total CO2 ABG O2 Saturation ABG Base Excess [place] Test ABG Potassium A-a O2 Difference Respiratory Index Glucose Lactate Vent Mode Mechanical Rate FiO2 Tidal Volume PEEP Blood Gas Comments Crit Value Called To Crit Value Called By Crit Value Read Back Blood Gas Notified Time Sodium 140 Potassium 4.5 Chloride 107 Carbon Dioxide 24 Anion Gap 14 BUN 43 H Creatinine 0.9 Est GFR ( Amer) > 60 Est GFR (Non-Af Amer) 59 POC Glucose (mg/dL) Random Glucose 83 Lactic Acid Calcium 7.1 L Phosphorus 3.8 Magnesium 2.5 H Total Bilirubin 1.3 AST 13 L ALT 17 Alkaline Phosphatase 94 Troponin I 0.0330 C-React Prot High Sens > 15.00 H NT-Pro-B Natriuret Pep 3450 H Total Protein 5.1 L Albumin 2.1 L D Globulin 3.0 Albumin/Globulin Ratio 0.7 L Plasma Cortisol PM Arterial Blood Potassium Urine Color Urine Clarity Urine pH Ur Specific [place] Urine Protein Urine Glucose (UA) Urine Ketones Urine Blood Urine Nitrate Urine Bilirubin Urine Urobilinogen Ur Leukocyte Esterase Urine WBC (Auto) Urine RBC (Auto) Ur Squamous Epith Cells Hyaline Casts 09/04/17 09/04/17 09/04/17 06:18 06:21 10:24 WBC RBC Hgb Hct MCV MCH MCHC RDW Plt Count MPV Neut % (Auto) Lymph % (Auto) [place] % (Auto) Eos % (Auto) Baso % (Auto) Neut # (Auto) Lymph # (Auto) [place] # (Auto) Eos # (Auto) Baso # (Auto) Neutrophils % (Manual) Band Neutrophils % Lymphocytes % (Manual) Monocytes % (Manual) Eosinophils % (Manual) Platelet Estimate Puncture Site Rf pCO2 34 L pO2 36 L* HCO3 10.4 L ABG pH 7.13 L* ABG Total CO2 12.3 L ABG O2 Saturation 54.5 L ABG Base Excess -16.9 L [place] Test Na ABG Potassium 2.8 L A-a O2 Difference 635.0 Respiratory Index 17.6 Glucose 63 L Lactate 4.0 H* Vent Mode Prvc Mechanical Rate 12 FiO2 100.0 Tidal Volume 450 PEEP 5 Blood Gas Comments Mixed venous Crit Value Called To Dr salazar Crit Value Called By Bruna roberts [employer] administrator Crit Value Read Back Y Blood Gas Notified Time 1030 Sodium 146.0 Potassium Chloride 121.0 H Carbon Dioxide Anion Gap BUN Creatinine Est GFR ( Amer) Est GFR (Non-Af Amer) POC Glucose (mg/dL) Random Glucose Lactic Acid 2.2 H Calcium Phosphorus Magnesium Total Bilirubin AST ALT Alkaline Phosphatase Troponin I C-React Prot High Sens NT-Pro-B Natriuret Pep Total Protein Albumin Globulin Albumin/Globulin Ratio Plasma Cortisol PM 53.7 H Arterial Blood Potassium 2.8 L Urine Color Urine Clarity Urine pH Ur Specific [place] Urine Protein Urine Glucose (UA) Urine Ketones Urine Blood Urine Nitrate Urine Bilirubin Urine Urobilinogen Ur Leukocyte Esterase Urine WBC (Auto) Urine RBC (Auto) Ur Squamous Epith Cells Hyaline Casts
[2017-09-04] MEDS ORDERED: Sodium Bicarbonate (8.4%) 50 Meq Syringe ONE (11:37)
[2017-09-04] MEDS ORDERED: EPINEPHrine 1 mg/ml (1:1000) Inj ONE (11:37)
--- NOTE | 2017-09-04 13:18 | PCM.RRT ---
<Michelle Barry - Last Filed: 09/04/17 14:22> STEEL ERECTOR Nurses Assessment - Situation Date: 09/04/17 Time STEEL ERECTOR was called: 11:37 STEEL ERECTOR Responder Arrival Time:: 11:37 STEEL ERECTOR Location:: ICU Room Number: 16 STEEL ERECTOR Reason for Call: Bradycardia (Code Blue - Cardiopulmonary Arrest) STEEL ERECTOR Called By: RN - IV IV Inserted during STEEL ERECTOR?: No - Respiratory STEEL ERECTOR Delivery Method: Intubated (Patient already intubated. ) Received Nebulizer Treatments: No Was the Patient Ventilated with Bag/Mask 100% O2?: Yes Secretions Suctioned?: No Was the Patient Intubated?: Yes (Patient was already intubated) - Ventilator Settings Mode: PRVC Ventilator Respiratory Rate Settin Ventilator Tidal Volume Settin PEEP/CPAP (cm H2O): 0 SAO2 %: 99 FIO2 (% Oxygen): 100 - Medication Medications Administered During STEEL ERECTOR: Epinephrine x 6 and NaHCO3 (2 Amps) - Diagnostic Test Ordered EKG: No Chest X-Ray: No CT Scan: Yes (Ordered before Code Blue and pending. ) CPR started during STEEL ERECTOR?: Yes - [place] Coma Scale Coma Scale Eye Opening: No response Coma Scale Motor: None Coma Scale Verbal: No response Coma Scale Total: 3 - Sepsis Screen Part 1 Sepsis Screen Part 1: Hypotensive - Time STEEL ERECTOR Ended Time STEEL ERECTOR Ended: 11:57 - Vital Signs at end of STEEL ERECTOR Vital Signs at end of STEEL ERECTOR: Patient I.Reason for STEEL ERECTOR - A) Acute Change in Patient: (Select all that apply): Acute change in heart rate less than 50 or greater than 120 Subjective: CODE BLUE Cold Blue called for ICU Bed # 16 at 11:37. Compressions were started immediately. Patient received 2 amps of sodium bicarb and Epinephrine x 6. Code was was stopped after 20 minutes of ACLS. Patient's son who was outside of the room was notified of patient's expiration. - Neurological Status (Select all that apply): absent: Alert, Responsive, Oriented, Verbal, Follows Commands - Respiratory Oxygen Delivery Method: Intubated - Constitutional Appears: Toxic, In Acute Distress - Head Head Exam: ATRAUMATIC, NORMOCEPHALIC Additional Comments: Right IJ triple Lumen Cath - Respiratory Exam Respiratory Exam: absent: NORMAL BREATHING PATTERN Additional comments: Intubated - Cardiovascular Exam Cardiovascular Exam: absent: +S1, +S2 Plan - Assessment of Findings&Treatment Plan Patient . <Shayan Gonzalez - Last Filed: 09/04/17 18:44> Attending/Attestation - Attestation I have personally seen and examined this patient.: Yes I have fully participated in the care of the patient.: Yes I have reviewed all pertinent clinical information, including history, physical exam and plan: Yes Notes (Text): 09/04/17 18:43 patient suddenly became bradycardic and then asystole CPR started full ACLS protocol followed with no response Patient pronounced at 11:57 AM
[2017-09-04 15:27] VITALS: BP 153/47; PULSE 51; RESP 19; O2SAT 77
[2017-09-04 16:03] VITALS: TEMP 97.7
[2017-09-04] MEDS ORDERED: Aztreonam 1 GM in Sodium Chloride 0.9% 100 ML IVPB SCH (18:00)
--- NOTE | 2017-09-04 18:45 | PCM.PROC ---
Procedures Attestation:: I certify that I have explained the specified Operation(s) or Procedure(s), risks, benefits and reasonable alternatives to the Patient and/or other person responsible. The opportunity was given to ask questions and all questions answered - Central Line Placement Right Internal Jugular Triple Lumen Catheter Aseptic technique was employed throughout the procedure: Full sterile barriers ( mask, hair cover, sterile gown, sterile gloves), Full body sterile drape, Chloraprep Antiseptic: 30 second prep for IJ or SC sites CVP Time Out Performed: Yes Pt. Placed on Pulse Ox Monitor: Yes Central Line Prep: Chlorhexidine-Alcohol Combination Local Anesthesia Used: Lidocaine 1% Amount of Anesthesia Used (mls): 3 Ultrasound Used for Placement: Yes Central Line Lumen Inserted: triple Central Line Length: 16 cm Post Procedure: Sutured in Place, Good Blood Return, All Ports Aspirated, Flushed, Capped, Sterile Dressing Applied Secured by: Suture Post procedure dressing: Chlorhexidine disc (Biopatch) Post Procedure X-Ray: Yes Patient Tolerated Procedure: Well
--- NOTE | 2017-09-04 20:53 | HP ---
HISTORY OF PRESENT ILLNESS: I have been seeing her in followup review at subacute rehab every other day for about two weeks now. She is having some abdominal pain, in and out of it. We will try to address all the issues. Also, I have been seeing her son a lot there too. I sent her to the emergency room today due to shortness of breath and not doing well. She is an 87-year-old female with history of Alzheimer's, hypertension, noninsulin-dependent diabetes, anemia, shortness of breath this morning, and also some abdominal pain. She has dementia. She has good days and bad days. Today is a bad morning. The other day, she was doing quite well and good spirits. PAST SURGICAL HISTORY: None. FAMILY HISTORY: None. SOCIAL HISTORY: Nonsmoker. No drinking. No drugs. I came to see her this morning in the emergency room. ALLERGIES: SHE IS ALLERGIC TO PENICILLIN. She was short of breath, not really able to talk to her. I met the son in the ER. She had angioplasty of coronary vessels. She had contrast aortogram, arteriogram, esophagogastroduodenoscopy. , none. Coronary vascular stents, insertion of one vascular stent. She is out of it right now. REVIEW OF SYSTEMS: Cannot get any review of systems, but she know she is having abdominal pain and she is quite short of breath at this time. PHYSICAL EXAMINATION: VITAL SIGNS: She has a 98.9 temp, 122 pulse, she has 43 respiratory rate, 74/34 blood pressure, and 94% O2 saturation on 2 L. GENERAL: She is in no acute distress. Right now, respiratory distress. They are going to intubate her. She has a 3 cm ulcer in the sacral area, stage II. HEENT: Head is atraumatic and normocephalic. Throat is dry. HEART: Regular rate, pretty tachycardic. LUNGS: Decreased breath sounds. Some rales at the bases. ABDOMEN: Soft, nontender. Positive bowel sounds at this time. EXTREMITIES: With no edema. NEUROLOGIC: Alert. Responds to painful stimuli at this time. LABORATORY DATA: She has a 3.5 white count, 12.4 hemoglobin, 36.3 hematocrit, and 209 platelets. She has 140 sodium, potassium 4.5, BUN 42, creatinine 0.9, GFR is greater than 60, sugar is 83, calcium 7.1, phosphorus is 3.8, magnesium 2.5, total bili is 1.3, AST is 13, ALT 79, alk phos 94. Troponin I is 0.03. CRP is high at greater than 15. BNP is high at 3450. Lactic acid is 2.2, high. Urine is fairly clear. She will be in intensive care unit. PLAN: I consulted Pulmonary, Cardiology, and GI. She is on IV fluids. She is on phenylephrine. She had a dose of vancomycin and Zosyn by the [employer] production line. We will continue aggressive treatment and care. She has acute respiratory failure and possibly CHF, needs some shock. Abdominal pain. We will watch her very closely.She is very ill and I hope she can pull through. Poor prognosis. John Mckeon DO MTDD
[2017-09-04] MEDS ORDERED: Vancomycin 1 gm/NS 200 ml 1 GM/200 ML BAG IVPB SCH (22:00)
--- NOTE | 2017-09-05 19:22 | CARD ---
APPROVED REPORT EKG Measurement Heart [id number] <Conclusion> Atrial fibrillation with rapid ventricular response Right bundle branch block Abnormal ECG
== END 2017-09-04 11:57 | DRG 584 ==
LOC: C.ER 05:34 → C.9I 08:58
PROVIDERS: ADMIT Family Medicine; ATTEND Family Medicine
PROC: 5A1935Z Respiratory Ventilation, Less than 24 Consecutive Hours (ICD-10-PCS; principal; 2017-09-04)
PROC: 0BH17EZ Insertion of Endotracheal Airway into Trachea, Via Natural or Artificial Opening (ICD-10-PCS; 2017-09-04)
PROC: 3E033XZ Introduction of Vasopressor into Peripheral Vein, Percutaneous Approach (ICD-10-PCS; 2017-09-04)
PROC: 05HY33Z Insertion of Infusion Device into Upper Vein, Percutaneous Approach (ICD-10-PCS; 2017-09-04)
PROC: 5A09357 Assistance with Respiratory Ventilation, Less than 24 Consecutive Hours, Continuous Positive Airway Pressure (ICD-10-PCS; 2017-09-04)
DX: A41.9 Sepsis, unspecified organism (principal); J18.9 Pneumonia, unspecified organism; J96.00 Acute respiratory failure, unspecified whether with hypoxia or hypercapnia; I50.9 Heart failure, unspecified; I11.0 Hypertensive heart disease with heart failure; G30.9 Alzheimer's disease, unspecified; R65.20 Severe sepsis without septic shock; E83.51 Hypocalcemia; E83.41 Hypermagnesemia; I10 Essential (primary) hypertension; E11.9 Type 2 diabetes mellitus without complications; K21.9 Gastro-esophageal reflux disease without esophagitis; F02.80 Dementia in other diseases classified elsewhere, unspecified severity, without behavioral disturbance, psychotic disturbance, mood disturbance, and anxiety; Z88.0 Allergy status to penicillin; I48.91 Unspecified atrial fibrillation